=== PATIENT | male | born 1965 | race Caucasian/White ===

== ENCOUNTER 2018-10-08 12:16 | Observation (INO) | payer OTHER ==
[2018-10-08] MEDS ORDERED: BABY ASPIRIN 81 MG CHEW PO ONE (12:31)
[2018-10-08] MEDS ORDERED: MORPHINE SULFATE 2 MG INJ IV ONE (12:31)
--- NOTE | 2018-10-08 12:34 | ERPHSYRPT ---
- History of Present Illness Time Seen by Provider: 10/08/18 12:33 Historian: patient Physician History: mild to mod tight anterior chest pain today, nonrad, hx pacer and atrial fib, no [place] Aspirin Treatment Today: provided by ED Allergies/Adverse Reactions: tramadol Allergy (Verified 10/08/18 12:34) Home Medications: Metoprolol Succinate 25 mg Xl* [Toprol-Xl 25MG Tablets] 25 mg BID 10/08/18 [ History] - Review of Systems Constitutional: No Fever Eyes: No Eye Redness Ears, Nose, & Throat: No Mouth Pain Respiratory: No Dyspnea Cardiac: Chest Pain Abdominal/Gastrointestinal: No Abdominal Pain Musculoskeletal: No Back Pain Skin: No Rash Neurological: No Dizziness - Nursing Vital Signs Nursing Vital Signs: Initial Vital Signs Temperature 97.0 F 10/08/18 12:25 Pulse Rate 86 10/08/18 12:25 Respiratory Rate 18 10/08/18 12:25 Blood Pressure 150/112 10/08/18 12:25 O2 Sat by Pulse Oximetry 95 10/08/18 12:25 Pain Scale Pain Intensity 7 - Physical Exam General Appearance: no apparent distress Eye Exam: eyes nml inspection Ears, Nose, Throat Exam: moist mucous membranes Neck Exam: normal inspection Respiratory Exam: normal breath sounds Cardiovascular Exam: regular rate/rhythm Gastrointestinal/Abdomen Exam: soft, No tenderness Extremity Exam: normal range of motion Neurologic Exam: alert, oriented x 3, cooperative Skin Exam: normal color, warm, dry - Course Nursing assessment & vital signs reviewed: Yes EKG Interpreted by Me: Sinus Rhythm - Radiology Exams Chest X-ray Interpretation: Reviewed by me, Negative Ordered Tests: Active Orders 24 hr Category Date Time Status Owner Professional Engineer STAT Care 10/08/18 12:31 Active EKG-ER Only STAT Care 10/08/18 12:31 Active IV Insertion STAT Care 10/08/18 12:31 Active CHEST 1 VIEW (PORTABLE) Stat Exams 10/08/18 12:31 Completed CBC W DIFF Stat Lab 10/08/18 12:45 Completed CMP Stat Lab 10/08/18 12:45 Completed D-DIMER QUANTITATION Stat Lab 10/08/18 12:45 Completed PROTIME WITH INR Stat Lab 10/08/18 12:45 Completed TROPONIN Q3H Lab 10/08/18 12:45 Completed TROPONIN Q3H Lab 10/08/18 15:45 Ordered TROPONIN Q3H Lab 10/08/18 18:45 Ordered TROPONIN Q3H Lab 10/08/18 21:45 Ordered TROPONIN Q3H Lab 10/09/18 00:45 Ordered Urine Triage Profile Stat Lab 10/08/18 13:37 Ordered Medication Summary Discontinued Medications Generic Name Dose Route Start Last Admin Trade Name Millerq PRN Reason Stop Dose Admin Aspirin 324 mg 10/08/18 12:31 10/08/18 12:49 Baby Aspirin 81 Mg Chew PO 10/08/18 12:32 324 mg STAT ONE Administration Aspirin Confirm 10/08/18 12:35 Baby Aspirin 81 Mg Chew Administered 10/08/18 12:36 Dose 324 mg .ROUTE .STK-MED ONE Morphine Sulfate 2 mg 10/08/18 12:31 10/08/18 12:48 Morphine Sulfate 2 Mg Inj IV 10/08/18 12:32 2 mg STAT ONE Administration Morphine Sulfate Confirm 10/08/18 12:35 Morphine Sulfate 2 Mg Inj Administered 10/08/18 12:36 Dose 2 mg .ROUTE .STK-MED ONE Lab/Rad Data: Laboratory Result Diagrams 10/08/18 12:45 10/08/18 12:45 Laboratory Results 10/08/18 10/08/18 10/08/18 Range/Units 12:45 12:45 12:45 WBC (4.0-10.5) K/mm3 RBC (4.1-5.6) M/mm3 Hgb (12.5-18.0) gm/dl Hct (42-50) % MCV (78-100) fl MCH (26-32) pg MCHC (32-36) g/dl RDW (11.5-14.0) % Plt Count (150-450) K/mm3 MPV (6-9.5) fl Gran % (36.0-66.0) % Eos # (Auto) (0-0.5) Absolute Lymphs (auto) (1.0-4.6) Absolute Monos (auto) (0.0-1.3) Lymphocytes % (24.0-44.0) % Monocytes % (0.0-12.0) % Eosinophils % (0.00-5.0) % Basophils % (0.0-0.4) % Absolute Granulocytes (1.4-6.9) Basophils # (0-0.4) PT 11.1 (8.83-12.87) SECONDS INR 0.98 (0.8-3.0) D-Dimer < 215 L (215-500) ng/mL Sodium 141 (137-145) mmol/L Potassium 4.4 (3.5-5.1) mmol/L Chloride 104 (98-107) mmol/L Carbon Dioxide 27 (22-30) mmol/L Anion Gap 13.8 (5-15) MEQ/L BUN 16 (9-20) mg/dL Creatinine 0.74 (0.66-1.25) mg/dL Estimated GFR > 60.0 ML/MIN Glucose 107 H (74-106) mg/dL Calcium 9.6 (8.4-10.2) mg/dL Total Bilirubin 0.60 (0.2-1.3) mg/dL AST 27 (17-59) U/L ALT 32 (0-50) U/L Alkaline Phosphatase 44 (38-126) U/L Troponin I < 0.012 (0.000-0.034) ng/mL Serum Total Protein 7.7 (6.3-8.2) g/dL Albumin 4.7 (3.5-5.0) g/dL 10/08/18 Range/Units 12:45 WBC 4.9 (4.0-10.5) K/mm3 RBC 5.11 (4.1-5.6) M/mm3 Hgb 15.8 (12.5-18.0) gm/dl Hct 46.1 (42-50) % MCV 90.2 (78-100) fl MCH 30.9 (26-32) pg MCHC 34.3 (32-36) g/dl RDW 13.3 (11.5-14.0) % Plt Count 217 (150-450) K/mm3 MPV 9.8 H (6-9.5) fl Gran % 60.1 (36.0-66.0) % Eos # (Auto) 0.02 (0-0.5) Absolute Lymphs (auto) 1.32 (1.0-4.6) Absolute Monos (auto) 0.59 (0.0-1.3) Lymphocytes % 27.0 (24.0-44.0) % Monocytes % 12.1 H (0.0-12.0) % Eosinophils % 0.4 (0.00-5.0) % Basophils % 0.4 (0.0-0.4) % Absolute Granulocytes 2.94 (1.4-6.9) Basophils # 0.02 (0-0.4) PT (8.83-12.87) SECONDS INR (0.8-3.0) D-Dimer (215-500) ng/mL Sodium (137-145) mmol/L Potassium (3.5-5.1) mmol/L Chloride (98-107) mmol/L Carbon Dioxide (22-30) mmol/L Anion Gap (5-15) MEQ/L BUN (9-20) mg/dL Creatinine (0.66-1.25) mg/dL Estimated GFR ML/MIN Glucose (74-106) mg/dL Calcium (8.4-10.2) mg/dL Total Bilirubin (0.2-1.3) mg/dL AST (17-59) U/L ALT (0-50) U/L Alkaline Phosphatase (38-126) U/L Troponin I (0.000-0.034) ng/mL Serum Total Protein (6.3-8.2) g/dL Albumin (3.5-5.0) g/dL - Progress Progress: improved Air Movement: good Progress Note: 10/08/18 13:41 admit d/w Dr Estrada, ekg nsr 85, no stemi Discussed with .: Bety Will see patient in: hospital (observation) Counseled pt/family regarding: lab results, diagnosis, rad results - Departure Departure Disposition: Observation Clinical Impression: Chest pain Qualifiers: Chest pain type: precordial pain Qualified Code(s): R07.2 - Precordial pain Condition: Stable Critical Care Time: No
[2018-10-08] MEDS ORDERED: MORPHINE SULFATE 2 MG INJ ONE (12:35)
[2018-10-08] MEDS ORDERED: BABY ASPIRIN 81 MG CHEW ONE (12:35)
[2018-10-08 12:49] LABS: BASOPHIL % 0.4 % (0.0-0.4); Basophil (Absolute #) 0.02 (0-0.4); Eosinophil % 0.4 % (0.00-5.0); Eosinophil (Absolute #) 0.02 (0-0.5); Granulocyte Absolute (ANC) 2.94 (1.4-6.9); Granulocytes % 60.1 % (36.0-66.0); Hematocrit 46.1 % (42-50); Hemoglobin 15.8 gm/dl (12.5-18.0); Lymphocyte (Absolute #) 1.32 (1.0-4.6); Mean Cell Volume 90.2 fl (78-100); Mean Corpuscular Hemoglobin 30.9 pg (26-32); Mean Corpuscular Hgb Concent. 34.3 g/dl (32-36); Mean Platelet Volume 9.8 fl (6-9.5); Monocyte (Absolute #) 0.59 (0.0-1.3); Monocytes % 12.1 % (0.0-12.0); Platelet Count 217 K/mm3 (150-450); Red Blood Count 5.11 M/mm3 (4.1-5.6); Red Cell Distribution Width 13.3 % (11.5-14.0); White Blood Count 4.9 K/mm3 (4.0-10.5)
--- NOTE | 2018-10-08 12:54 | XRAY ---
Indication: Chest pain. Comparison: None Portable chest demonstrates normal heart and lungs with incidental left dual-lead pacemaker and a few tiny calcified granulomas. Bony thorax intact.
[2018-10-08 12:59] LABS: INR 0.98 (0.8-3.0); PROTIME 11.1 SECONDS (8.83-12.87)
[2018-10-08 13:02] LABS: ALBUMIN 4.7 g/dL (3.5-5.0); ALKALINE PHOSPHATASE 44 U/L (38-126); ANION GAP 13.8 MEQ/L (5-15); BLOOD UREA NITROGEN 16 mg/dL (9-20); CHLORIDE 104 mmol/L (98-107); Calcium 9.6 mg/dL (8.4-10.2); Carbon Dioxide 27 mmol/L (22-30); Creatinine 1 0.74 mg/dL (0.66-1.25); Glucose 107 mg/dL (74-106); Potassium 4.4 mmol/L (3.5-5.1); SGOT/AST 27 U/L (17-59); SGPT/ALT 32 U/L (0-50); SODIUM 141 mmol/L (137-145); Total Protein 7.7 g/dL (6.3-8.2)
[2018-10-08 13:12] LABS: D-DIMER QUANTITATION < 215 ng/mL (215-500)
[2018-10-08] MEDS ORDERED: Ativan 2 MG/1 ML VIAL IV ONE (14:26)
[2018-10-08 14:29] LABS: Amphetamine,Urine NEGATIVE (NEGATIVE); Barbiturate,Urine NEGATIVE (NEGATIVE); Benzodiazepine,Urine POSITIVE (NEGATIVE); Cocaine,Urine NEGATIVE (NEGATIVE); Methadone,Urine NEGATIVE (NEGATIVE); Opiate,Urine POSITIVE (NEGATIVE); PCP,Urine NEGATIVE (NEGATIVE); THC,Urine NEGATIVE (NEGATIVE)
[2018-10-08] MEDS ORDERED: Ativan 2 MG/1 ML VIAL ONE (14:29)
[2018-10-08] MEDS ORDERED: Nitrostat 0.4 MG Tablet SL PRN (16:08)
[2018-10-08] MEDS ORDERED: PROTONIX 40 MG IV IV SCH (16:15)
[2018-10-08] MEDS ORDERED: TRAZODONE HCL PO PRN (16:22)
[2018-10-08] MEDS ORDERED: DESYREL 50 MG PO PRN (16:34)
[2018-10-08] MEDS ORDERED: NON-FORMULARY ITEM PO PRN (16:45)
[2018-10-08] MEDS: MORPHINE SULFATE 4 MG INJ IV PRN ×2 (17:11→21:19)
[2018-10-08] MEDS: CHLORPROMAZINE HCL 100 MG PO SCH ×2 (17:15→17:30)
[2018-10-08] MEDS: Toprol-Xl 25MG Tablets PO SCH (21:18)
[2018-10-08] MEDS ORDERED: NON-FORMULARY ITEM (Prazosin Hcl [Prazosin Hcl] 0 MG) PO SCH (22:00)
[2018-10-08] MEDS ORDERED: REMERON 30 MG PO SCH (22:00)
[2018-10-09] MEDS: MORPHINE SULFATE 4 MG INJ IV PRN ×2 (01:42→05:44)
[2018-10-09 06:26] LABS: BASOPHIL % 0.5 % (0.0-0.4); Basophil (Absolute #) 0.03 (0-0.4); Eosinophil % 0.8 % (0.00-5.0); Eosinophil (Absolute #) 0.05 (0-0.5); Granulocyte Absolute (ANC) 3.75 (1.4-6.9); Granulocytes % 57.7 % (36.0-66.0); Hematocrit 42.6 % (42-50); Hemoglobin 14.4 gm/dl (12.5-18.0); Lymphocyte (Absolute #) 1.88 (1.0-4.6); Mean Cell Volume 91.6 fl (78-100); Mean Corpuscular Hgb Concent. 33.8 g/dl (32-36); Mean Platelet Volume 9.5 fl (6-9.5); Monocyte (Absolute #) 0.78 (0.0-1.3); Platelet Count 196 K/mm3 (150-450); Red Blood Count 4.65 M/mm3 (4.1-5.6); Red Cell Distribution Width 13.2 % (11.5-14.0); White Blood Count 6.5 K/mm3 (4.0-10.5)
[2018-10-09 06:41] LABS: ALBUMIN 4.2 g/dL (3.5-5.0); ALKALINE PHOSPHATASE 41 U/L (38-126); ANION GAP 13.7 MEQ/L (5-15); BLOOD UREA NITROGEN 17 mg/dL (9-20); CHLORIDE 103 mmol/L (98-107); Carbon Dioxide 29 mmol/L (22-30); Cholesterol 219 mg/dL (50-200); Creatinine 1 0.87 mg/dL (0.66-1.25); Glucose 95 mg/dL (74-106); HDL CHOLESTEROL 46 mg/dL (40-60); Potassium 3.9 mmol/L (3.5-5.1); Risk Ratio 4.7; SGOT/AST 29 U/L (17-59); SGPT/ALT 32 U/L (0-50); SODIUM 141 mmol/L (137-145); TRIGLYCERIDE 222 mg/dL (30-150)
[2018-10-09 06:58] LABS: LDL, DIRECT 137 mg/dL (30-100)
[2018-10-09] MEDS: CHLORPROMAZINE HCL 100 MG PO SCH (08:30)
--- NOTE | 2018-10-09 09:21 | HP ---
CHIEF COMPLAINT: Chest pain. HISTORY OF PRESENT ILLNESS: The patient is a 53 year-old white male with history of previous atrial fibrillation. He had a pacemaker implanted about two and a half years ago. The patient also has a significant psychiatric history with schizophrenia and depression. He reports he has been out of medicines for a few days. He states he moved recently and he has no vehicle to get anywhere. In fact, he has seizures and cannot drive. The patient is in a state of change between his caregivers. He does have an appointment to see [facility] on 10/13/2018 for follow up for his problems. When asked, the patient admits to actually having visual and auditory hallucinations on a daily basis. The patient complains the chest pain is substernal in location, hurts with inspiration and pressure to the chest radiating to his left arm and down the arm. The patient was seen in the emergency room and admitted to the hospital on telemetry. He has been receiving serial troponins which have all been negative but continues to complain of fairly severe chest pain. He reports the pain was somewhat better with morphine but it just did not last. MEDICATIONS: The patient currently lists the only home medication is metoprolol 25 mg a day. The patient reports he had previously taken Effexor but cannot remember his other medications but includes medication for his schizophrenia. ALLERGIES: TRAMADOL. PHYSICAL EXAMINATION: The patient's vital signs on admission showed temperature 97.0F, pulse 86, respiratory rate 18 and blood pressure 150/112. O2 saturation 95% on room air. HEENT: Normocephalic, atraumatic. Pupils equal round reactive to light. Extraocular movements intact. Oropharynx is pink and moist. NECK: Supple without lymphadenopathy, thyromegaly or JVD. CHEST: Clear to auscultation with good air movement bilaterally. Tender in substernal location to pressure on the sternum. HEART: Currently regular without significant murmurs, rubs or gallops heard. ABDOMEN: Soft. No palpable masses. EXTREMITIES: Without cyanosis, clubbing or edema. NEUROLOGIC: The patient is alert and oriented x3. No focal deficits. He is quite tremulous particularly in his left hand. LAB DATA AND TESTS: His laboratory studies have revealed troponins all less than 0.012. Metabolic panel sugar was 95, BUN 17, creatinine 0.87. Electrolytes were normal. Liver enzymes were normal. Lipid panel showed LDL of 137, HDL 46. His CBC is entirely normal. The patient had a D-dimer that was less than 215. Portable chest x-ray showed dual lead pacemaker. His EKG presently shows sinus rhythm. On the 12-lead it shows some loss of R-wave progression across the precordial leads concerning for previous myocardial infarction. ASSESSMENT: A patient with chest wall pain. We will try tramadol and Voltaren rub to his chest. We will check a sedimentation rate to see if there is any evidence of inflammation. He was ruled out for myocardial infarction. We will check an echocardiogram to determine his previous ejection fraction, how his heart is presently working. His D-dimer has been negative, given this CT scan of the chest will be done to rule out pulmonary embolism. The patient will have a [facility] consultation to help determine what psychiatric medicines he should be on for his schizophrenia. Once his chest pain is more relieved and has had determination by [facility], he may be discharged home to his son. He currently reports he lives with his son but his son is away working all the time.
[2018-10-09] MEDS ORDERED: TORAdol 30 mg Injection IV PRN (09:29)
[2018-10-09] MEDS ORDERED: Voltaren GEL TOP PRN (09:29)
[2018-10-09] MEDS ORDERED: MORPHINE SULFATE 4 MG INJ IV PRN (09:48)
[2018-10-09] MEDS: Toprol-Xl 25MG Tablets PO SCH (11:48)
[2018-10-09 14:03] VITALS: BP 125/78; PULSE 78; O2SAT 93
== END 2018-10-09 15:12 ==
LOC: ED 12:16 → MED SURG 14:58
PROVIDERS: ADMIT Family Medicine; ATTEND Family Medicine
DX: R07.89 Other chest pain (principal); F20.9 Schizophrenia, unspecified; R44.3 Hallucinations, unspecified
CPT/HCPCS: 36000; 36415; 71045; 80053; 80061; 80307; 83721; 84484; 85025; 85379; 85610; 85652; 90791; 93005; 93041; 93268; 93306; 96374; 96375; 99285; G0378; Q3014; J1885; J2060; J2270; A9270-GY

== ENCOUNTER 2018-12-19 13:16 | Observation (INO) | payer OTHER ==
[2018-12-19] MEDS ORDERED: Nitrostat 0.4 MG (ED) SL ONE (13:27)
[2018-12-19] MEDS ORDERED: BABY ASPIRIN 81 MG CHEW PO ONE (13:27)
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
[2018-12-19] MEDS ORDERED: Sodium Chloride 0.9% 1000 ML 1,000 ML ONE (13:38)
[2018-12-19] MEDS: Sodium Chloride 0.9% 1000 ML 1,000 ML IV SCH ×3 (13:41→19:37)
[2018-12-19 13:46] LABS: Hemoglobin 14.8 gm/dl (12.5-18.0); Mean Corpuscular Hemoglobin 30.6 pg (26-32); Mean Corpuscular Hgb Concent. 34.4 g/dl (32-36); Mean Platelet Volume 9.9 fl (6-9.5); Platelet Count 222 K/mm3 (150-450); Red Blood Count 4.83 M/mm3 (4.1-5.6); Red Cell Distribution Width 12.8 % (11.5-14.0); White Blood Count 5.3 K/mm3 (4.0-10.5)
[2018-12-19 13:52] LABS: INR 1.56 (0.8-3.0); PROTIME 17.8 SECONDS (8.83-12.87)
[2018-12-19 14:05] LABS: ALBUMIN 4.1 g/dL (3.5-5.0); ALKALINE PHOSPHATASE 30 U/L (38-126); ANION GAP 14.4 MEQ/L (5-15); BLOOD UREA NITROGEN 11 mg/dL (9-20); CHLORIDE 103 mmol/L (98-107); Calcium 9.5 mg/dL (8.4-10.2); Carbon Dioxide 28 mmol/L (22-30); Creatinine 1 0.97 mg/dL (0.66-1.25); Glucose 132 mg/dL (74-106); NT PRO BNP 805 pg/mL (0-900); Potassium 4.3 mmol/L (3.5-5.1); SGOT/AST 17 U/L (17-59); SGPT/ALT 14 U/L (0-50); SODIUM 141 mmol/L (137-145)
[2018-12-19 14:08] LABS: BAND 2 % (0.0-2.0); Lymphocytes 28 % (24-44); Monocyte 8 % (0.0-12.0); Neutrophils 62 % (36.-66.); Total Cells Counted 100
[2018-12-19 14:09] LABS: Platelet Estimate NORMAL (NORMAL)
[2018-12-19] MEDS ORDERED: MAALOX ES 30 ML UNIT DOSE PO PRN (14:40)
[2018-12-19] MEDS ORDERED: Senokot-S Tablet PO PRN (14:40)
[2018-12-19] MEDS ORDERED: Zofran 4 MG/2 ML VIAL IV PRN (14:40)
[2018-12-19] MEDS ORDERED: MILK OF MAGNESIA 30 ML PO PRN (14:40)
[2018-12-19] MEDS: TYLENOL 325 MG PO PRN (15:32)
[2018-12-19] MEDS ORDERED: MORPHINE SULFATE 2 MG INJ IV PRN (16:34)
[2018-12-19] MEDS ORDERED: Pepcid 20 MG VIAL IV ONE (16:39)
[2018-12-19] MEDS: Pepcid 20 MG VIAL IV SCH ×2 (16:46→22:16)
[2018-12-19] MEDS ORDERED: Sodium Chloride 0.9% 1000 ML 1,000 ML IV STA (18:40)
[2018-12-19] MEDS ORDERED: Desyrel 150 MG PO PRN (18:55)
[2018-12-19] MEDS: TORAdol 30 mg Injection IV PRN (19:33)
--- NOTE | 2018-12-19 19:51 | XRAY ---
Indication: Intermittent chest pain. Comparison: October 08, 2018. Portable chest again without focal infiltrate, consolidation, or large effusion. Heart is not enlarged again with left sided dual lead pacemaker. Bony thorax intact. Impression: Stable nonacute chest.
[2018-12-19] MEDS ORDERED: Desyrel 150 MG PO SCH (22:00)
[2018-12-19] MEDS ORDERED: REMERON 30 MG PO SCH (22:00)
[2018-12-19] MEDS ORDERED: Abilify 10 MG PO SCH (22:00)
[2018-12-19] MEDS ORDERED: EFFEXOR 37.5 MG PO SCH (22:00)
[2018-12-19] MEDS: Toprol-Xl 25MG Tablets PO SCH (22:06)
[2018-12-19] MEDS ORDERED: EFFEXOR 37.5 MG ONE (22:12)
[2018-12-20] MEDS: Sodium Chloride 0.9% 1000 ML 1,000 ML IV SCH (04:30)
[2018-12-20 05:01] LABS: Risk Ratio 3.8
[2018-12-20] MEDS: Toprol-Xl 25MG Tablets PO SCH (08:13)
[2018-12-20] MEDS: TYLENOL 325 MG PO PRN (08:14)
[2018-12-20] MEDS: Pepcid 20 MG VIAL IV SCH (08:14)
[2018-12-20] MEDS ORDERED: Sodium Chloride 0.9% 500 ML 500 ML IV ONE (09:24)
[2018-12-20] MEDS ORDERED: EFFEXOR 37.5 MG PO SCH (10:00)
[2018-12-20] MEDS ORDERED: VITAMIN B-1 100 MG PO SCH (10:00)
[2018-12-20] MEDS ORDERED: XARELTO 10 MG TABLET PO SCH (10:00)
[2018-12-20] MEDS: TORAdol 30 mg Injection IV PRN (10:28)
[2018-12-20 14:17] VITALS: O2SAT 95
[2018-12-20 16:31] VITALS: BP 141/92; PULSE 64
--- NOTE | 2018-12-20 19:11 | XRAY ---
Indication: Chest pain. Multiple contiguous axial images obtained through the chest without contrast. Known IV contrast allergy. Comparison: None Lungs demonstrates mild bilateral dependent atelectasis and minimal bibasilar fibrosis/scarring. No suspicious pulmonary mass, infiltrate, or effusion. Heart is not enlarged with left-sided pacemaker. Aorta is normal in course and caliber. No pathologic mediastinal lymphadenopathy. Bony thorax intact. Limited upper abdomen including adrenal glands are unremarkable. Impression: 1. Bilateral atelectasis and fibrosis/scarring. 2. Remaining CT chest without contrast exam is negative. Comment: Preliminary interpretation was made by [facility]. No discrepancy. CTDI 15.63
[2018-12-20] MEDS ORDERED: Depakote EXTENDED RELEASE 250 MG PO SCH (22:00)
[2018-12-20] MEDS ORDERED: PRAZOSIN HCL 2 MG PO SCH (22:00)
[2018-12-20] MEDS ORDERED: NON-FORMULARY ITEM (Prazosin Hcl [Prazosin Hcl] 0 MG) PO SCH (22:00)
[2018-12-21] MEDS ORDERED: FLUZONE HIGH-DOSE 2019-20 SYR IM ONE (10:00)
== END 2018-12-20 17:10 | disposition home or self-care (01) ==
LOC: ED 13:16 → MED SURG 15:01
PROVIDERS: ADMIT Family Medicine; ATTEND Family Medicine
DX: R07.9 Chest pain, unspecified (principal); I10 Essential (primary) hypertension; E03.9 Hypothyroidism, unspecified; Z79.899 Other long term (current) drug therapy; Z86.79 Personal history of other diseases of the circulatory system; Z95.0 Presence of cardiac pacemaker; Z86.69 Personal history of other diseases of the nervous system and sense organs
CPT/HCPCS: 36415; 71250; 80053; 80061; 83721; 83880; 84484; 85025; 85379; 85610; 93005; 93041; 93268; 94760; 96360; 99291; G0378; 36000; 71045; 99285; J1885; J2270; A9270-GY

== ENCOUNTER 2019-02-13 10:41 | Observation (INO) | payer OTHER ==
[2019-02-13] MEDS ORDERED: LOPRESSOR 5 MG/5 ML INJECTION IV ONE ×2 (10:56→11:17)
[2019-02-13] MEDS ORDERED: MORPHINE SULFATE 4 MG INJ IV ONE (10:56)
[2019-02-13] MEDS ORDERED: Sodium Chloride 0.9% 1000 ML 1,000 ML IV SCH (11:00)
[2019-02-13] MEDS ORDERED: Cardizem IV 50 MG/10 ML IV ONE ×2 (11:08→11:18)
[2019-02-13] MEDS ORDERED: Zofran 4 MG/2 ML VIAL IV ONE (11:15)
[2019-02-13] MEDS ORDERED: Zofran 4 MG/2 ML VIAL ONE (11:17)
[2019-02-13] MEDS ORDERED: Sodium Chloride 0.9% 1000 ML 1,000 ML ONE (11:18)
[2019-02-13] MEDS ORDERED: MORPHINE SULFATE 4 MG INJ ONE (11:18)
[2019-02-13 11:24] LABS: Absolute Neutrophil Ct (ANC) 2.81 (1.4-6.9); BASOPHIL % 0.4 % (0.0-0.4); Basophil (Absolute #) 0.02 (0-0.4); Eosinophil % 0.7 % (0.00-5.0); Eosinophil (Absolute #) 0.04 (0-0.5); Hematocrit 38.7 % (42-50); Hemoglobin 13.1 gm/dl (12.5-18.0); Lymphocyte (Absolute #) 1.92 (1.0-4.6); Mean Cell Volume 91.1 fl (78-100); Mean Corpuscular Hemoglobin 30.8 pg (26-32); Mean Corpuscular Hgb Concent. 33.9 g/dl (32-36); Mean Platelet Volume 9.8 fl (7.5-11.0); Monocytes % 12.8 % (0.0-12.0); Neutrophil % 51.1 % (36.0-66.0); Platelet Count 203 K/mm3 (150-450); Red Blood Count 4.25 M/mm3 (4.1-5.6); Red Cell Distribution Width 13.1 % (11.5-14.0); White Blood Count 5.5 K/mm3 (4.0-10.5)
[2019-02-13] MEDS ORDERED: BABY ASPIRIN 81 MG CHEW PO ONE (11:34)
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
[2019-02-13] MEDS ORDERED: BABY ASPIRIN 81 MG CHEW ONE (11:35)
[2019-02-13 11:44] LABS: ALBUMIN 3.4 g/dL (3.5-5.0); ALKALINE PHOSPHATASE 39 U/L (38-126); ANION GAP 7.8 MEQ/L (5-15); BLOOD UREA NITROGEN 9 mg/dL (9-20); CHLORIDE 108 mmol/L (98-107); Calcium 8.2 mg/dL (8.4-10.2); Carbon Dioxide 28 mmol/L (22-30); Creatinine 1 0.91 mg/dL (0.66-1.25); Glucose 138 mg/dL (74-106); NT PRO BNP 1510 pg/mL (0-900); Potassium 3.7 mmol/L (3.5-5.1); SGOT/AST 29 U/L (17-59); SGPT/ALT 38 U/L (0-50); SODIUM 140 mmol/L (137-145); Total Protein 6.2 g/dL (6.3-8.2)
[2019-02-13] MEDS ORDERED: MORPHINE SULFATE 2 MG INJ IV ONE (11:55)
[2019-02-13] MEDS ORDERED: MORPHINE SULFATE 2 MG INJ ONE (11:58)
[2019-02-13] MEDS ORDERED: MAALOX ES 30 ML UNIT DOSE PO PRN (12:52)
[2019-02-13] MEDS ORDERED: Zofran 4 MG/2 ML VIAL IV PRN (12:52)
[2019-02-13] MEDS ORDERED: Sodium Chloride 0.9% 500 ML 500 ML IV SCH (12:52)
[2019-02-13] MEDS ORDERED: TYLENOL 325 MG PO PRN (12:52)
[2019-02-13] MEDS ORDERED: Senokot-S Tablet PO PRN (12:52)
[2019-02-13] MEDS ORDERED: MILK OF MAGNESIA 30 ML PO PRN (12:52)
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
[2019-02-13] MEDS: CARDIZEM DRIP 100 MG/100 ML D5W 100 ML IV PRN ×2 (15:05→23:43)
[2019-02-13] MEDS: MORPHINE SULFATE 2 MG INJ IV PRN ×3 (16:40→23:49)
--- NOTE | 2019-02-13 19:58 | XRAY ---
Indication: Chest pain. Comparison: December 19, 2018. Portable chest underinflated accentuating cardiopulmonary structures with stable left dual-lead pacemaker. Lungs remain clear. Bony thorax intact. No new/acute findings.
[2019-02-13] MEDS: Nitrostat 0.4 MG Tablet SL PRN ×2 (20:55→21:00)
[2019-02-13] MEDS: Pepcid 20 MG VIAL IV SCH (21:38)
[2019-02-13] MEDS: COGENTIN 0.5 MG PO SCH (21:38)
[2019-02-13] MEDS: ZOCOR 20MG PO SCH (21:38)
[2019-02-13] MEDS: BUSPAR 5 MG PO SCH ×2 (21:38→21:47)
[2019-02-13] MEDS: REMERON 30 MG PO SCH (21:39)
[2019-02-13] MEDS: Abilify 10 MG PO SCH (21:39)
[2019-02-13] MEDS: Desyrel 150 MG PO SCH (21:39)
[2019-02-13] MEDS: Lopressor 25MG Tab PO SCH (22:37)
[2019-02-13] MEDS: Toprol-Xl 25MG Tablets PO SCH (22:37)
[2019-02-14] MEDS: MORPHINE SULFATE 2 MG INJ IV PRN ×4 (05:36→19:59)
--- NOTE | 2019-02-14 06:18 | PCM.NOTE ---
Date and Time: 02/14/19617 Subjective Assessment: doing better - Review of Systems Constitutional: No Fever, No Chills Eyes: No Symptoms Ears, Nose, & Throat: No Symptoms Respiratory: No Cough, No Short Of Breath Cardiac: Chest Pain, No Edema, No Syncope Abdominal/Gastrointestinal: No Abdominal Pain, No Nausea, No Vomiting, No Diarrhea Genitourinary Symptoms: No Dysuria Musculoskeletal: No Back Pain, No Neck Pain Skin: No Rash Neurological: No Dizziness, No Focal Weakness, No Sensory Changes Psychological: No Symptoms Endocrine: No Symptoms Hematologic/Lymphatic: No Symptoms Immunological/Allergic: No Symptoms Objective Exam General Appearance: no apparent distress, alert Neurologic Exam: alert, oriented x 3, cooperative, normal mood/affect, nml cerebellar function, sensation nml, No motor deficits Skin Exam: normal color, warm, dry Eye Exam: PERRL, EOMI, eyes nml inspection Ears, Nose, Throat Exam: normal ENT inspection, pharynx normal, moist mucous membranes Neck Exam: normal inspection, non-tender, supple, full range of motion Respiratory Exam: normal breath sounds, lungs clear, No respiratory distress Cardiovascular Exam: regular rate/rhythm, normal heart sounds Gastrointestinal/Abdomen Exam: soft, No tenderness, No mass Extremity Exam: normal inspection, normal range of motion Back Exam: normal inspection, normal range of motion, No CVA tenderness, No vertebral tenderness Male Genitalia Exam: deferred Rectal Exam: deferred OBJECTIVE DATA Vital Signs: Vital Signs - 24 hr Temp Pulse Pulse Resp BP BP Pulse Ox 02/14/19 06:00 98.1 F 96 H 111/77 02/14/19 05:00 74 107/76 02/14/19 04:35 71 18 97/60 96 02/14/19 04:30 71 18 97/60 02/14/19 04:00 98.8 F 71 20 116/80 116/80 96 02/14/19 03:00 86 106/73 94 L 02/14/19 02:00 103 H 18 117/76 94 L 02/14/19 01:00 97.7 F 93 H 19 101/74 94 L 02/14/19 00:23 91 H 02/14/19 00:00 97.7 F 91 H 20 118/72 95 02/13/19 23:43 104 H 19 108/76 02/13/19 23:10 95 02/13/19 23:00 104 H 19 108/76 95 02/13/19 22:00 99 H 19 116/68 94 L 02/13/19 21:00 96 H 102/62 102/62 02/13/19 20:55 93 H 120/65 02/13/19 20:00 94 H 23 110/87 96 02/13/19 19:00 97.4 F 119 H 17 121/65 97 02/13/19 18:00 113 H 22 113/82 93 L 02/13/19 17:00 97.8 F 117 H 22 123/93 94 L 02/13/19 16:00 98.1 F 111 H 22 127/85 94 L 02/13/19 15:05 129 H 19 123/89 02/13/19 13:47 98.4 F 80 20 133/86 94 L 02/13/19 12:05 97 02/13/19 11:38 104 H 18 118/87 97 02/13/19 11:31 108 H 20 104/80 96 02/13/19 10:47 98.6 F 100 H 100 H 20 132/109 97 Oxygen-Last 24 hours O2 Percentage 2 Liters = 28% O2 Percentage 2 Liters = 28% O2 Percentage 2 Liters = 28% O2 Percentage 2 Liters = 28% O2 Percentage 2 Liters = 28% O2 Percentage 2 Liters = 28% O2 Percentage 2 Liters = 28% O2 Percentage 2 Liters = 28% O2 Percentage 2 Liters = 28% O2 Percentage 2 Liters = 28% O2 Percentage 2 Liters = 28% Pain Assessment - Last Documented Pain Intensity 9 Pain Scale Used 0-10 Pain Scale Intake and Output: Intake & Output 02/11/19 02/12/19 02/13/19 02/14/19 11:59 11:59 11:59 11:59 Intake Total 1218 Output Total 1700 Balance -482 Weight 120.202 kg 120.1 kg Lab Results: Lab Results-Last 24 Hours 02/13/19 02/13/19 02/13/19 Range/Units 00:02 11:15 11:15 WBC 5.5 (4.0-10.5) K/mm3 RBC 4.25 (4.1-5.6) M/mm3 Hgb 13.1 (12.5-18.0) gm/dl Hct 38.7 L (42-50) % MCV 91.1 (78-100) fl MCH 30.8 (26-32) pg MCHC 33.9 (32-36) g/dl RDW 13.1 (11.5-14.0) % Plt Count 203 (150-450) K/mm3 MPV 9.8 H (7.5-11.0) fl Gran % 51.1 (36.0-66.0) % Eos # (Auto) 0.04 (0-0.5) Absolute Lymphs (auto) 1.92 (1.0-4.6) Absolute Monos (auto) 0.70 (0.0-1.3) Lymphocytes % 35.0 (24.0-44.0) % Monocytes % 12.8 H (0.0-12.0) % Eosinophils % 0.7 (0.00-5.0) % Basophils % 0.4 (0.0-0.4) % Absolute Granulocytes 2.81 (1.4-6.9) Basophils # 0.02 (0-0.4) D-Dimer (215-500) ng/mL Sodium 140 (137-145) mmol/L Potassium 3.7 (3.5-5.1) mmol/L Chloride 108 H (98-107) mmol/L Carbon Dioxide 28 (22-30) mmol/L Anion Gap 7.8 (5-15) MEQ/L BUN 9 (9-20) mg/dL Creatinine 0.91 (0.66-1.25) mg/dL Estimated GFR > 60.0 ML/MIN Glucose 138 H (74-106) mg/dL Calcium 8.2 L (8.4-10.2) mg/dL Total Bilirubin 0.50 (0.2-1.3) mg/dL AST 29 (17-59) U/L ALT 38 (0-50) U/L Alkaline Phosphatase 39 (38-126) U/L Troponin I < 0.012 (0.000-0.034) ng/mL NT-Pro-B Natriuret Pep 1510 H (0-900) pg/mL Serum Total Protein 6.2 L (6.3-8.2) g/dL Albumin 3.4 L (3.5-5.0) g/dL 02/13/19 02/13/19 02/13/19 Range/Units 11:15 11:15 14:00 WBC (4.0-10.5) K/mm3 RBC (4.1-5.6) M/mm3 Hgb (12.5-18.0) gm/dl Hct (42-50) % MCV (78-100) fl MCH (26-32) pg MCHC (32-36) g/dl RDW (11.5-14.0) % Plt Count (150-450) K/mm3 MPV (7.5-11.0) fl Gran % (36.0-66.0) % Eos # (Auto) (0-0.5) Absolute Lymphs (auto) (1.0-4.6) Absolute Monos (auto) (0.0-1.3) Lymphocytes % (24.0-44.0) % Monocytes % (0.0-12.0) % Eosinophils % (0.00-5.0) % Basophils % (0.0-0.4) % Absolute Granulocytes (1.4-6.9) Basophils # (0-0.4) D-Dimer 360 (215-500) ng/mL Sodium (137-145) mmol/L Potassium (3.5-5.1) mmol/L Chloride (98-107) mmol/L Carbon Dioxide (22-30) mmol/L Anion Gap (5-15) MEQ/L BUN (9-20) mg/dL Creatinine (0.66-1.25) mg/dL Estimated GFR ML/MIN Glucose (74-106) mg/dL Calcium (8.4-10.2) mg/dL Total Bilirubin (0.2-1.3) mg/dL AST (17-59) U/L ALT (0-50) U/L Alkaline Phosphatase (38-126) U/L Troponin I < 0.012 < 0.012 (0.000-0.034) ng/mL NT-Pro-B Natriuret Pep (0-900) pg/mL Serum Total Protein (6.3-8.2) g/dL Albumin (3.5-5.0) g/dL 02/13/19 02/13/19 Range/Units 18:06 20:51 WBC (4.0-10.5) K/mm3 RBC (4.1-5.6) M/mm3 Hgb (12.5-18.0) gm/dl Hct (42-50) % MCV (78-100) fl MCH (26-32) pg MCHC (32-36) g/dl RDW (11.5-14.0) % Plt Count (150-450) K/mm3 MPV (7.5-11.0) fl Gran % (36.0-66.0) % Eos # (Auto) (0-0.5) Absolute Lymphs (auto) (1.0-4.6) Absolute Monos (auto) (0.0-1.3) Lymphocytes % (24.0-44.0) % Monocytes % (0.0-12.0) % Eosinophils % (0.00-5.0) % Basophils % (0.0-0.4) % Absolute Granulocytes (1.4-6.9) Basophils # (0-0.4) D-Dimer (215-500) ng/mL Sodium (137-145) mmol/L Potassium (3.5-5.1) mmol/L Chloride (98-107) mmol/L Carbon Dioxide (22-30) mmol/L Anion Gap (5-15) MEQ/L BUN (9-20) mg/dL Creatinine (0.66-1.25) mg/dL Estimated GFR ML/MIN Glucose (74-106) mg/dL Calcium (8.4-10.2) mg/dL Total Bilirubin (0.2-1.3) mg/dL AST (17-59) U/L ALT (0-50) U/L Alkaline Phosphatase (38-126) U/L Troponin I < 0.012 < 0.012 (0.000-0.034) ng/mL NT-Pro-B Natriuret Pep (0-900) pg/mL Serum Total Protein (6.3-8.2) g/dL Albumin (3.5-5.0) g/dL Radiology Exams: Radiology Procedures Category Date Time Status CHEST 1 VIEW (PORTABLE) Stat Exams 02/13/19 10:58 Completed ECHO W/2D AND DOPPLER [US] Routine Exams 02/15/19 08:00 Ordered Assessment/Plan (1) Chest pain Current Visit: Yes Status: Acute Qualifiers: Chest pain type: precordial pain Qualified Code(s): R07.2 - Precordial pain Assessment & Plan: Last Vital Signs Temp 98.1 F 02/14/19 06:00 Pulse 96 H 02/14/19 06:00 Resp 18 02/14/19 04:35 BP 111/77 02/14/19 06:00 Pulse Ox 96 02/14/19 04:35 Allergies shellfish derived Allergy (Verified 02/13/19 10:45) Swelling of Face tramadol Allergy (Verified 02/13/19 10:45) Active Medications Acetaminophen (Tylenol 325 Mg) 650 mg PO Q4H PRN PRN PRN Reason: PAIN AND/OR FEVER Stop: 03/15/19 12:51 Al Hydrox/Mg Hydrox/Simethicone (Maalox Es 30 Ml Unit Dose) 30 ml PO Q4H PRN PRN PRN Reason: INDIGESTION Stop: 03/15/19 12:51 Aripiprazole (Abilify 10 Mg) 30 mg PO [facility] Stop: 03/15/19 21:59 Last Admin: 02/13/19 21:39 Dose: 30 mg Benztropine Mesylate (Cogentin 0.5 Mg) 1 mg PO BID [facility] Stop: 03/15/19 21:59 Last Admin: 02/13/19 21:38 Dose: 1 mg Buspirone HCl (Buspar 5 Mg) 10 mg PO BID [facility] Stop: 03/15/19 19:59 Last Admin: 02/13/19 21:47 Dose: Not Given Divalproex Sodium (Divalproex Dr 250 Mg Tab) 1,500 mg PO [facility] Stop: 03/15/19 21:59 Last Admin: 02/13/19 21:38 Dose: 1,500 mg Famotidine (Pepcid 20 Mg Vial) 20 mg IV Q12HT [facility] Stop: 03/15/19 21:59 Last Admin: 02/13/19 21:38 Dose: 20 mg Sodium Chloride (Sodium Chloride 0.9% 500 Ml) 500 mls @ 20 mls/hr IV .Q24H [facility] Stop: 03/15/19 12:51 Diltiazem HCl (Cardizem Drip 100 Mg/100 Ml D5w) 100 mls @ 5 mls/hr IV .Q20H PRN ; Protocol PRN Reason: HEART RATE/ A-FIB Stop: 03/15/19 14:16 Last Titration: 02/14/19 04:30 Dose: 0 mg/hr, 0 mls/hr Magnesium Hydroxide (Milk Of Magnesia 30 Ml) 30 - 60 ml PO QDP PRN PRN Reason: CONSTIPATION Stop: 03/15/19 12:51 Metoprolol Succinate (Toprol-Xl 25mg Tablets) 25 mg PO BID [facility] Stop: 03/15/19 21:59 Last Admin: 02/13/19 22:37 Dose: Not Given Metoprolol Tartrate (Lopressor 25mg Tab) 25 mg PO BID [facility] Stop: 03/15/19 21:59 Last Admin: 02/13/19 22:37 Dose: Not Given Mirtazapine (Remeron 30 Mg) 30 mg PO [facility] Stop: 03/15/19 21:59 Last Admin: 02/13/19 21:39 Dose: 30 mg Morphine Sulfate (Morphine Sulfate 2 Mg Inj) 2 mg IV Q4H PRN PRN PRN Reason: PAIN Stop: 02/18/19 12:51 Last Admin: 02/14/19 05:36 Dose: 2 mg Nitroglycerin (Nitrostat 0.4 Mg Tablet) 0.4 mg SL Q5MIN PRN MR X 3 PRN PRN Reason: CHEST PAIN Stop: 03/15/19 20:51 Last Admin: 02/13/19 21:00 Dose: 0.4 mg Ondansetron HCl (Zofran 4 Mg/2 Ml Vial) 4 mg IV Q4H PRN PRN PRN Reason: NAUSEA/VOMITING Stop: 03/15/19 12:51 Senna/Docusate Sodium (Senokot-S Tablet) 2 udtab PO BID PRN PRN PRN Reason: CONSTIPATION Stop: 03/15/19 12:51 Simvastatin (Zocor 20mg) 20 mg PO [facility] Stop: 03/15/19 21:59 Last Admin: 02/13/19 21:38 Dose: 20 mg Trazodone HCl (Desyrel 150 Mg) 150 mg PO [facility] Stop: 03/15/19 21:59 Last Admin: 02/13/19 21:39 Dose: 150 mg Intake & Output 02/13/19 02/14/19 11:59 11:59 Intake Total 1218 Output Total 1700 Balance -482 Weight 120.202 kg 120.1 kg Orders 02/13/19 12:52 Bedrest with BRP/BSC ROUTINE Code Status Order ROUTINE IV Care Q1H Implement Chest Pain Pathway ROUTINE Place in Observation ROUTINE [place] [facility] ROUTINE Weight,Daily 0600 Acetaminophen 325 mg [Tylenol 325 mg] 650 mg PO Q4H PRN PRN Mag Hydrox/Al Hydrox/Simeth [Maalox Es 30 ml Unit Dose] 30 ml PO Q4H PRN PRN Magnesium Hydroxide 30 ml [Milk of Magnesia 30 ml] 30 - 60 ml PO QDP PRN Morphine Sulfate 2 mg Inj 2 mg IV Q4H PRN PRN NaCl 0.9% 500 ml [Sodium Chloride 0.9% 500 ML] 500 ml IV 20 mls/hr Ondansetron HCl 4 mg/2 ml [Zofran 4 MG/2 ML VIAL] 4 mg IV Q4H PRN PRN Senna/Docusate Sodium Tab [Senokot-S Tablet] 2 udtab PO BID PRN PRN Pulse Oximetry Q4H 02/13/19 13:36 Telemetry q4h 02/13/19 14:07 Wafer Fab Operator/Discharge Plan Nutritional Admission Screen 02/13/19 14:17 Diltiazem HCl 100 mg/100 ml [Cardizem Drip 100 mg/100 ml D5w] 100 ml IV 5 mg/hr 02/13/19 20:00 Buspirone HCl 5 mg [Buspar 5 mg] 10 mg PO BID 02/13/19 20:52 Nitroglycerin 0.4 mg Tablet [Nitrostat 0.4 MG Tablet] 0.4 mg SL Q5MIN PRN MR X 3 PRN 02/13/19 22:00 Aripiprazole 10 mg [Abilify 10 MG] 30 mg PO HS Benztropine Mesylate 0.5 mg [Cogentin 0.5 mg] 1 mg PO BID Divalproex Sodium 250 mg [Divalproex DR 250 mg Tab] 1,500 mg PO HS Famotidine 20 mg Vial [Pepcid 20 MG VIAL] 20 mg IV Q12HT Metoprolol Succinate 25 mg Xl* [Toprol-Xl 25MG Tablets] 25 mg PO BID Metoprolol Tartrate 25 mg [Lopressor 25MG Tab] 25 mg PO BID Mirtazapine 30 mg [Remeron 30 mg] 30 mg PO HS Simvastatin 20Mg [Zocor 20Mg] 20 mg PO HS Trazodone HCl 150 mg [Desyrel 150 MG] 150 mg PO HS 02/13/19 23:09 Oxygen Nasal Cannula 2 lpm 02/13/19 Dinner Cardiac Diet 02/14/19 04:00 LIPID PROFILE AM.LAB 02/14/19 10:00 Flu Vacc [id number](6Mos Up)/Pf [Fluzone Quad Syringe] 60 mcg IM .ONCE ONE 02/15/19 05:00 EKG ONCE 02/15/19 08:00 ECHO W/2D AND DOPPLER [US] Routine 02/16/19 05:00 EKG ONCE EKG ONCE Lab Tests 02/13/19 02/13/19 02/13/19 00:02 11:15 11:15 WBC 5.5 RBC 4.25 Hgb 13.1 Hct 38.7 L MCV 91.1 MCH 30.8 MCHC 33.9 RDW 13.1 Plt Count 203 MPV 9.8 H Gran % 51.1 Eos # (Auto) 0.04 Absolute Lymphs (auto) 1.92 Absolute Monos (auto) 0.70 Lymphocytes % 35.0 Monocytes % 12.8 H Eosinophils % 0.7 Basophils % 0.4 Absolute Granulocytes 2.81 Basophils # 0.02 D-Dimer Sodium 140 Potassium 3.7 Chloride 108 H Carbon Dioxide 28 Anion Gap 7.8 BUN 9 Creatinine 0.91 Estimated GFR > 60.0 Glucose 138 H Calcium 8.2 L Total Bilirubin 0.50 AST 29 ALT 38 Alkaline Phosphatase 39 Troponin I < 0.012 NT-Pro-B Natriuret Pep 1510 H Serum Total Protein 6.2 L Albumin 3.4 L 01/04/20 01/04/20 01/04/20 11:15 11:15 14:00 WBC RBC Hgb Hct MCV MCH MCHC RDW Plt Count MPV Gran % Eos # (Auto) Absolute Lymphs (auto) Absolute Monos (auto) Lymphocytes % Monocytes % Eosinophils % Basophils % Absolute Granulocytes Basophils # D-Dimer 360 Sodium Potassium Chloride Carbon Dioxide Anion Gap BUN Creatinine Estimated GFR Glucose Calcium Total Bilirubin AST ALT Alkaline Phosphatase Troponin I < 0.012 < 0.012 NT-Pro-B Natriuret Pep Serum Total Protein Albumin 02/13/19 02/13/19 18:06 20:51 WBC RBC Hgb Hct MCV MCH MCHC RDW Plt Count MPV Gran % Eos # (Auto) Absolute Lymphs (auto) Absolute Monos (auto) Lymphocytes % Monocytes % Eosinophils % Basophils % Absolute Granulocytes Basophils # D-Dimer Sodium Potassium Chloride Carbon Dioxide Anion Gap BUN Creatinine Estimated GFR Glucose Calcium Total Bilirubin AST ALT Alkaline Phosphatase Troponin I < 0.012 < 0.012 NT-Pro-B Natriuret Pep Serum Total Protein Albumin Code(s): R07.9 - CHEST PAIN, UNSPECIFIED (2) Atrial fibrillation and flutter Current Visit: Yes Status: Acute Code(s): I48.91 - UNSPECIFIED ATRIAL FIBRILLATION; I48.92 - UNSPECIFIED ATRIAL FLUTTER
[2019-02-14] MEDS ORDERED: FLUZONE QUAD 2019-2020 SYRINGE IM ONE (10:00)
[2019-02-14] MEDS: XARELTO 10 MG TABLET PO SCH (10:15)
[2019-02-14] MEDS: BUSPAR 5 MG PO SCH ×2 (10:15→22:10)
[2019-02-14] MEDS: Effexor XR 75 MG PO SCH (10:16)
[2019-02-14] MEDS: SYNTHROID 50 MCG PO SCH (10:16)
[2019-02-14] MEDS: FOLATE 1 MG PO SCH (10:16)
[2019-02-14] MEDS: VITAMIN B-1 100 MG PO SCH (10:16)
[2019-02-14] MEDS: Pepcid 20 MG VIAL IV SCH ×2 (10:19→22:09)
[2019-02-14] MEDS: COGENTIN 0.5 MG PO SCH ×2 (10:19→22:19)
[2019-02-14] MEDS: Lopressor 25MG Tab PO SCH ×2 (10:56→22:11)
[2019-02-14] MEDS: Toprol-Xl 25MG Tablets PO SCH (10:56)
[2019-02-14] MEDS ORDERED: PRAZOSIN PO SCH (22:00)
[2019-02-14] MEDS: Abilify 10 MG PO SCH (22:09)
[2019-02-14] MEDS: Desyrel 150 MG PO SCH (22:10)
[2019-02-14] MEDS: REMERON 30 MG PO SCH (22:10)
[2019-02-14] MEDS: ZOCOR 20MG PO SCH (22:11)
[2019-02-15] MEDS: MORPHINE SULFATE 2 MG INJ IV PRN ×3 (03:53→11:56)
[2019-02-15] MEDS: Lopressor 25MG Tab PO SCH (07:49)
[2019-02-15] MEDS: FOLATE 1 MG PO SCH (07:49)
[2019-02-15] MEDS: BUSPAR 5 MG PO SCH (07:50)
[2019-02-15] MEDS: XARELTO 10 MG TABLET PO SCH (07:52)
[2019-02-15] MEDS: Pepcid 20 MG VIAL IV SCH (07:52)
[2019-02-15] MEDS: VITAMIN B-1 100 MG PO SCH (07:52)
[2019-02-15] MEDS: Effexor XR 75 MG PO SCH (07:52)
[2019-02-15] MEDS: SYNTHROID 50 MCG PO SCH (07:52)
[2019-02-15] MEDS: COGENTIN 0.5 MG PO SCH (08:14)
--- NOTE | 2019-02-15 12:19 | PCM.DS ---
Discharge Summary Date of Admission: 02/13/19 12:43 Admitting Physician: HEAVEN GILLIAM Primary Care Provider: MIRIAM SILVA MD Allergies Allergies shellfish derived Allergy (Verified 02/13/19 10:45) Swelling of Face tramadol Allergy (Verified 02/13/19 10:45) Hospital Summary - Hospital Course Hospital Course: Chief Complaint Diagnosis chest pain for 1 week Allergies Allergy/AdvReac Type Severity Reaction Status Date / Time shellfish derived Allergy Swelling Verified 02/13/19 10:45 of Face tramadol Allergy Verified 02/13/19 10:45 Vital Signs (Last 24 hours) Temp Pulse Resp BP Pulse Ox 02/15/19 11:13 91 L 02/15/19 09:00 97.6 F 105 H 24 135/85 94 L 02/15/19 08:22 94 L 02/15/19 06:00 94 L 02/15/19 04:12 97.7 F 88 18 137/87 94 L 02/15/19 02:00 97 02/14/19 23:29 98.5 F 89 22 128/90 97 02/14/19 22:03 97 02/14/19 21:00 97.8 F 91 H 20 115/80 97 02/14/19 19:00 95 02/14/19 16:58 98.0 F 90 18 130/85 96 02/14/19 15:00 96 Home Medications Medication Instructions Recorded Confirmed Last Taken Type Benztropine Mesylate 1 mg PO BID 02/13/19 02/13/19 02/12/19 History Buspirone HCl 5 mg [Buspar 5 10 mg PO BID 02/13/19 02/13/19 02/12/19 History mg] Folic Acid 1 mg PO DAILY 02/13/19 02/13/19 02/12/19 History Levothyroxine Sodium [Synthroid] 50 mcg PO QAM 02/13/19 02/13/19 Unknown History Prazosin HCl [Minipress] 5 mg PO HS 02/13/19 02/13/19 02/12/19 History Rivaroxaban [Xarelto] 20 mg PO QAM 02/13/19 02/13/19 02/13/19 History Simvastatin 20 mg PO HS 02/13/19 02/13/19 Unknown History Trazodone HCl 150 mg [Desyrel 150 mg PO HS 02/13/19 02/13/19 02/12/19 History 150 MG] Venlafaxine HCl [Venlafaxine HCl 150 mg PO QAM 02/13/19 02/13/19 02/12/19 History ER] Current Medications Generic Name Dose Route Start Last Admin Trade Name Freq PRN Reason Stop Dose Admin Acetaminophen 650 mg 02/13/19 12:52 Tylenol 325 Mg PO 03/15/19 12:51 Q4H PRN PRN PAIN AND/OR FEVER Al Hydrox/Mg Hydrox/Simethicone 30 ml 02/13/19 12:52 Maalox Es 30 Ml Unit Dose PO 03/15/19 12:51 Q4H PRN PRN INDIGESTION Aripiprazole 30 mg 02/13/19 22:00 02/14/19 22:09 Abilify 10 Mg PO 03/15/19 21:59 30 mg HS ELOISA Administration Benztropine Mesylate 1 mg 02/13/19 22:00 02/15/19 08:14 Cogentin 0.5 Mg PO 03/15/19 21:59 1 mg BID ELOISA Administration Buspirone HCl 10 mg 02/13/19 20:00 02/15/19 07:50 Buspar 5 Mg PO 03/15/19 19:59 10 mg BID ELOISA Administration Divalproex Sodium 1,500 mg 02/13/19 22:00 02/14/19 22:[address] 250 Mg Tab PO 03/15/19 21:59 1,500 mg HS ELOISA Administration Famotidine 20 mg 02/13/19 22:00 02/15/19 07:52 Pepcid 20 Mg Vial IV 03/15/19 21:59 20 mg Q12HT ELOISA Administration Folic Acid 1 mg 02/14/19 10:00 02/15/19 07:49 Folate 1 Mg PO 03/16/19 09:59 1 mg DAILY ELOISA Administration Sodium Chloride 500 mls @ 20 mls/hr 02/13/19 12:52 Sodium Chloride 0.9% 500 Ml IV 03/15/19 12:51 .Q24H ELOISA Levothyroxine Sodium 50 mcg 02/14/19 10:00 02/15/19 07:52 Synthroid 50 Mcg PO 03/16/19 09:59 50 mcg QAM ELOISA Administration Magnesium Hydroxide 30 - 60 ml 02/13/19 12:52 Milk Of Magnesia 30 Ml PO 03/15/19 12:51 QDP PRN CONSTIPATION Metoprolol Tartrate 25 mg 02/13/19 22:00 02/15/19 07:49 Lopressor 25mg Tab PO 03/15/19 21:59 25 mg BID ELOISA Administration Mirtazapine 30 mg 02/13/19 22:00 02/14/19 22:10 Remeron 30 Mg PO 03/15/19 21:59 30 mg HS ELOISA Administration Morphine Sulfate 2 mg 02/13/19 12:52 02/15/19 11:56 Morphine Sulfate 2 Mg Inj IV 02/18/19 12:51 2 mg Q4H PRN PRN Administration PAIN Nitroglycerin 0.4 mg 02/13/19 20:52 02/13/19 21:00 Nitrostat 0.4 Mg Tablet SL 03/15/19 20:51 0.4 mg Q5MIN PRN MR X 3 PRN Administration CHEST PAIN Non-Formulary Medication 0 mg 02/14/19 22:00 02/14/19 22:09 Prazosin Hcl [Minipress] PO 03/16/19 21:59 5 mg HS ELOISA Administration Ondansetron HCl 4 mg 02/13/19 12:52 Zofran 4 Mg/2 Ml Vial IV 03/15/19 12:51 Q4H PRN PRN NAUSEA/VOMITING Rivaroxaban 20 mg 02/14/19 10:00 02/15/19 07:52 Xarelto 10 Mg Tablet PO 03/16/19 09:59 20 mg QAM ELOISA Administration Senna/Docusate Sodium 2 udtab 02/13/19 12:52 Senokot-S Tablet PO 03/15/19 12:51 BID PRN PRN CONSTIPATION Simvastatin 20 mg 02/13/19 22:00 02/14/19 22:11 Zocor 20mg PO 03/15/19 21:59 20 mg HS ELOISA Administration Thiamine HCl 100 mg 02/14/19 10:00 02/15/19 07:52 Vitamin B-1 100 Mg PO 03/16/19 09:59 100 mg DAILY ELOISA Administration Trazodone HCl 150 mg 02/13/19 22:00 02/14/19 22:10 Desyrel 150 Mg PO 03/15/19 21:59 150 mg HS ELOISA Administration Venlafaxine HCl 150 mg 02/14/19 10:00 02/15/19 07:52 Effexor Xr 75 Mg PO 03/16/19 09:59 150 mg QAM ELOISA Administration Discontinued Medications Generic Name Dose Route Start Last Admin Trade Name Freq PRN Reason Stop Dose Admin Aspirin 81 mg 02/13/19 11:34 02/13/19 11:36 Baby Aspirin 81 Mg Chew PO 02/13/19 11:35 81 mg STAT ONE Administration Aspirin Confirm 02/13/19 11:35 Baby Aspirin 81 Mg Chew Administered 02/13/19 11:36 Dose 81 mg .ROUTE .STK-MED ONE Diltiazem HCl 10 mg 02/13/19 11:08 02/13/19 11:24 Cardizem Iv 50 Mg/10 Ml IV 02/13/19 11:09 10 mg STAT ONE Administration Diltiazem HCl Confirm 02/13/19 11:18 Cardizem Iv 50 Mg/10 Ml Administered 02/13/19 11:19 Dose 50 mg IV .STK-MED ONE Sodium Chloride 1,000 mls @ 100 mls/hr 02/13/19 11:00 02/13/19 11:23 Sodium Chloride 0.9% 1000 Ml IV 03/15/19 10:59 100 mls/hr .Q10H ELOISA Administration Sodium Chloride Confirm 02/13/19 11:18 Sodium Chloride 0.9% 1000 Ml Administered 02/13/19 11:19 Dose 1,000 mls @ ud .ROUTE .STK-MED ONE Diltiazem HCl 100 mls @ 5 mls/hr 02/13/19 14:17 02/14/19 04:30 Cardizem Drip 100 Mg/100 Ml D5w IV 03/15/19 14:16 0 mg/hr .Q20H PRN 0 mls/hr HEART RATE/ A-FIB Titration Protocol 5 MG/HR Metoprolol Succinate 25 mg 02/13/19 22:00 02/14/19 10:56 Toprol-Xl 25mg Tablets PO 03/15/19 21:59 Not Given BID ELOISA Metoprolol Tartrate 5 mg 02/13/19 10:56 02/13/19 11:23 Lopressor 5 Mg/5 Ml Injection IV 02/13/19 10:57 Not Given STAT ONE Metoprolol Tartrate Confirm 02/13/19 11:17 Lopressor 5 Mg/5 Ml Injection Administered 02/13/19 11:18 Dose 5 mg IV .STK-MED ONE Morphine Sulfate 4 mg 02/13/19 10:56 02/13/19 11:24 Morphine Sulfate 4 Mg Inj IV 02/13/19 10:57 4 mg STAT ONE Administration Morphine Sulfate Confirm 02/13/19 11:18 Morphine Sulfate 4 Mg Inj Administered 02/13/19 11:19 Dose 4 mg .ROUTE .STK-MED ONE Morphine Sulfate 2 mg 02/13/19 11:55 02/13/19 12:00 Morphine Sulfate 2 Mg Inj IV 02/13/19 11:56 2 mg STAT ONE Administration Morphine Sulfate Confirm 02/13/19 11:58 Morphine Sulfate 2 Mg Inj Administered 02/13/19 11:59 Dose 2 mg .ROUTE .STK-MED ONE Ondansetron HCl 4 mg 02/13/19 11:15 02/13/19 11:34 Zofran 4 Mg/2 Ml Vial IV 02/13/19 11:16 Not Given STAT ONE Ondansetron HCl Confirm 02/13/19 11:17 Zofran 4 Mg/2 Ml Vial Administered 02/13/19 11:18 Dose 4 mg .ROUTE .STK-MED ONE Intake & Output (Last 24 hours) 02/13/19 02/14/19 02/15/19 02/16/19 11:59 11:59 11:59 11:59 Intake Total 1218 1767 Output Total 1700 1050 Balance -482 717 Weight 120.202 kg 118.9 kg 120.8 kg Orders (Last 24 hours) Category Date Time Status Discharge Routine Discharge 02/15/19 Ordered Discharge/Telephone Order Routine Discharge 02/15/19 Active ECHO W/2D AND DOPPLER [US] Routine Exams 02/15/19 08:00 Taken Prazosin HCl [Minipress] Med 02/14/19 22:00 Active 0 mg PO HS EKG ONCE RT 02/15/19 05:00 Completed EKG ONCE RT 02/16/19 05:00 Active RT Miscellaneous Order ROUTINE RT 02/15/19 09:21 Active Patient Care Notes (Last 24 hours) 02/15/19 11:53 Nursing Note by Marina Lara Pt tolerating room air well. See respiratory note. Initialized on 02/15/19 11:53 - END OF NOTE 02/15/19 09:48 Case Management Note by Jeana Browning PRIMARY RN NOTIFIED OF ORDER TO WEAN OXYGEN PRIOR TO DC PATIENT DOES NOT WEAR OXYGEN AT HOME Initialized on 02/15/19 09:48 - END OF NOTE 02/15/19 09:34 Case Management Note by Jeana Browning PATIENT HAS ORDERS TO DC HOME TODAY. HE DENIES ANY NEEDS AT HOME BESIDES HE NEEDS INFORMATION ON TRANSPORTATION SERVICES AVAILABLE. HE WAS GIVEN A HANDOUT WITH TRANSP[employer]ATION [employer] AND ALSO NOTIFIED THAT SOME INSURANCES WILL ALSO PAY FOR TRANSPORTATION AND HE COULD CALL HIS TO CHECK TO SEE IF THAT IS AN OPTION. HE VERIFIED UNDERSTANDING. Initialized on 02/15/19 09:34 - END OF NOTE - Vitals & Intake/Output Vital Signs: Vital Signs Temperature 97.6 F 02/15/19 09:00 Pulse Rate 105 H 02/15/19 09:00 Respiratory Rate 24 02/15/19 09:00 Blood Pressure 135/85 02/15/19 09:00 O2 Sat by Pulse Oximetry 91 L 02/15/19 11:13 Oxygen-Last Documented O2 Percentage 2 Liters = 28% Intake & Output: Intake & Output 02/13/19 02/14/19 02/15/19 02/16/19 11:59 11:59 11:59 11:59 Intake Total 1218 1767 Output Total 1700 1050 Balance -482 717 Weight 120.202 kg 118.9 kg 120.8 kg - Lab Result Diagrams: 02/13/19 11:15 02/13/19 11:15 - Radiology Exams Ordered Rad Exams-Entire Visit: Radiology Procedures Category Date Time Status ECHO W/2D AND DOPPLER [US] Routine Exams 02/15/19 08:00 Taken - Procedures and Test Procedures and Tests throughout Hospitalization: Therapy Orders & Screens 02/13/19 19:00 EKG ONCE Comment: Diagnosis: chest pain r/o OR 02/13/19 23:09 Oxygen Nasal Cannula 2 lpm Comment: Diagnosis: chest pain for 1 week 02/14/19 06:00 EKG ROUTINE Comment: Diagnosis: chest pain for 1 week 02/15/19 05:00 EKG ONCE Comment: Diagnosis: chest pain r/o OR 02/15/19 09:21 RT Miscellaneous Order ROUTINE Comment: HE DOES NOT WEAR OXYGEN AT HOME Physician Instructions: WEAN PATIENT FROM OXYGEN Reason For Exam: Diagnosis: chest pain for 1 week 02/16/19 05:00 EKG ONCE Comment: Diagnosis: chest pain r/o OR Discharge Exam General Appearance: no apparent distress, alert Neurologic Exam: alert, oriented x 3, cooperative, normal mood/affect, nml cerebellar function, sensation nml, No motor deficits Eye Exam: PERRL, EOMI, eyes nml inspection Ears, Nose, Throat Exam: normal ENT inspection, pharynx normal, moist mucous membranes Neck Exam: normal inspection, non-tender, supple, full range of motion Respiratory Exam: normal breath sounds, lungs clear, No respiratory distress Cardiovascular Exam: regular rate/rhythm, normal heart sounds Gastrointestinal/Abdomen Exam: soft, No tenderness, No mass Male Genitalia Exam: deferred Rectal Exam: deferred Back Exam: normal inspection, normal range of motion, No CVA tenderness, No vertebral tenderness Extremity Exam: normal inspection, normal range of motion Skin Exam: normal color, warm, dry Final Diagnosis/Problem List - Final Discharge Diagnosis/Problem (1) Chest pain Current Visit: Yes Status: Resolved Code(s): R07.9 - CHEST PAIN, UNSPECIFIED (2) Atrial fibrillation and flutter Current Visit: Yes Status: Chronic Code(s): I48.91 - UNSPECIFIED ATRIAL FIBRILLATION; I48.92 - UNSPECIFIED ATRIAL FLUTTER - Discharge Discharge Date: 02/15/19 Disposition: Home, Self-Care Condition: Stable Prescriptions: Continue Metoprolol Succinate 25 mg Xl* [Toprol-Xl 25MG Tablets] 25 mg PO BID Mirtazapine 30 mg PO HS Thiamine HCl 100 mg [Vitamin B-1 100 mg] 100 mg PO DAILY Divalproex Sodium [Depakote] 1,500 mg PO HS Aripiprazole [Abilify] 30 mg PO HS Buspirone HCl 5 mg [Buspar 5 mg] 10 mg PO BID Folic Acid 1 mg PO DAILY Levothyroxine Sodium [Synthroid] 50 mcg PO QAM Simvastatin 20 mg PO HS Benztropine Mesylate 1 mg PO BID Venlafaxine HCl [Venlafaxine HCl ER] 150 mg PO QAM Trazodone HCl 150 mg [Desyrel 150 MG] 150 mg PO HS Rivaroxaban [Xarelto] 20 mg PO QAM Prazosin HCl [Minipress] 5 mg PO HS Instructions: Atrial Fibrillation (DC), Chest Pain That Is Not Caused by the Heart (DC) Additional Instructions: DR GILLIAM APPOINTMENT AT [facility]. Follow up with: LAZARO DAVIS MD [NON-STAFF PHY W/O PRIVILEGES] - 03/01/19 11:45 am HEAVEN GILLIAM MD [Emergency Provider] - 02/22/19 10:00 am
[2019-02-15 12:25] VITALS: BP 111/73; PULSE 80; O2SAT 94
--- NOTE | 2019-02-16 15:13 | ECHO ---
DATE OF PROCEDURE: 02/15/2019 CLINICAL INFORMATION: Chest pain with history of pacemaker. The M-mode 2D, and Doppler echocardiogram including color flow Doppler shows the left ventricle is normal in size at 5.2 cm. There is no thrombus present. The echocardiogram is technically difficult due to body habitus. The septal wall thickness is increased at 1.2 cm. The left ventricular posterior wall thickness is increased at 1.4 cm. There is normal contractility of the left ventricle with an ejection fraction calculated to be 68%. The right ventricle has a ventricular electrode. The contractility is normal. The left atrium is dilated at 4.4 cm. The interatrial septum is intact. The right atrium is normal. There is an electrode in the right atrium. The aortic valve opens well. There is no aortic regurgitation. There is mild tricuspid regurgitation. The right ventricular systolic pressure is normal at 21 mm of Mercury. The pulmonic valve is not well visualized. The aortic root is normal at 3.4 cm. There is a small posterior pericardial effusion present. IMPRESSION: 1) NORMAL CONTRACTILITY OF THE LEFT VENTRICLE. 2) MILD CONCENTRIC LEFT VENTRICULAR HYPERTROPHY. 3) MILD MITRAL REGURGITATION. 4) MILD TRICUSPID REGURGITATION. 5) NORMAL RIGHT VENTRICULAR SYSTOLIC PRESSURE. 6) RIGHT VENTRICULAR AND RIGHT ATRIAL ELECTRODE. 7) SMALL POSTERIOR PERICARDIAL EFFUSION. The echocardiogram is technically difficult.
== END 2019-02-15 12:10 | disposition home or self-care (01) ==
LOC: ED 10:41 → MED SURG 12:43 → ICU 14:33 → MED SURG 02-14 09:30
PROVIDERS: ADMIT General Practice; ATTEND General Practice
DX: R07.9 Chest pain, unspecified (principal); I48.91 Unspecified atrial fibrillation; R11.2 Nausea with vomiting, unspecified; I10 Essential (primary) hypertension; I25.10 Atherosclerotic heart disease of native coronary artery without angina pectoris; Z79.899 Other long term (current) drug therapy; Z95.0 Presence of cardiac pacemaker
CPT/HCPCS: 36415; 80053; 80061; 83721; 83880; 84484; 85025; 85379; 93005; 93041; 93268; 93306; 94760; 96374; 96375; 96376; 99291; G0378; 36000; 71045; 90686; 99285; J2270; J2405; A9270-GY

== ENCOUNTER 2019-03-14 13:51 | Inpatient (IN) | payer OTHER ==
[2019-03-14] MEDS ORDERED: MORPHINE SULFATE 4 MG INJ IV ONE ×2 (14:05→16:26)
[2019-03-14] MEDS ORDERED: MORPHINE SULFATE 4 MG INJ ONE ×2 (14:09→16:27)
[2019-03-14] MEDS: Sodium Chloride 0.9% 1000 ML 1,000 ML IV SCH ×2 (14:13→18:53)
[2019-03-14 14:27] LABS: Absolute Neutrophil Ct (ANC) 4.91 (1.4-6.9); BASOPHIL % 0.4 % (0.0-0.4); Basophil (Absolute #) 0.03 (0-0.4); Eosinophil % 0.7 % (0.00-5.0); Eosinophil (Absolute #) 0.05 (0-0.5); Hematocrit 38.4 % (42-50); Hemoglobin 12.7 gm/dl (12.5-18.0); Lymphocyte (Absolute #) 1.63 (1.0-4.6); Lymphocytes % 22.3 % (24.0-44.0); Mean Corpuscular Hemoglobin 30.1 pg (26-32); Mean Corpuscular Hgb Concent. 33.1 g/dl (32-36); Mean Platelet Volume 10.2 fl (7.5-11.0); Monocyte (Absolute #) 0.69 (0.0-1.3); Monocytes % 9.4 % (0.0-12.0); Neutrophil % 67.2 % (36.0-66.0); Platelet Count 201 K/mm3 (150-450); Red Blood Count 4.22 M/mm3 (4.1-5.6); Red Cell Distribution Width 13.3 % (11.5-14.0); White Blood Count 7.3 K/mm3 (4.0-10.5)
[2019-03-14 14:28] LABS: INR 1.13 (0.8-3.0); PROTIME 12.8 SECONDS (8.83-12.87)
[2019-03-14 14:31] LABS: PTT 27.7 SECONDS (24.1-36.1)
[2019-03-14 14:40] LABS: ALKALINE PHOSPHATASE 38 U/L (38-126); ANION GAP 12.8 MEQ/L (5-15); BLOOD UREA NITROGEN 10 mg/dL (9-20); CHLORIDE 106 mmol/L (98-107); Calcium 8.8 mg/dL (8.4-10.2); Carbon Dioxide 26 mmol/L (22-30); Creatinine 1 0.81 mg/dL (0.66-1.25); Glucose 114 mg/dL (74-106); NT PRO BNP 1990 pg/mL (0-900); SGOT/AST 17 U/L (17-59); SGPT/ALT 12 U/L (0-50); SODIUM 141 mmol/L (137-145); Total Protein 6.8 g/dL (6.3-8.2)
[2019-03-14] MEDS ORDERED: Lasix 40 MG/4 ML IV ONE (14:54)
[2019-03-14] MEDS ORDERED: Lasix 40 MG/4 ML ONE (14:56)
[2019-03-14 15:13] LABS: INFLUENZA A NEGATIVE (NEGATIVE); INFLUENZA B NEGATIVE (NEGATIVE); RESPIRATORY SYNCTIAL VIRUS NEGATIVE (Negative)
[2019-03-14 15:35] LABS: Appearance CLEAR (CLEAR); Bilirubin NEGATIVE (NEGATIVE); Blood NEGATIVE Ery/ul (0-5); Glucose NEGATIVE (NEGATIVE); Ketones NEGATIVE (NEGATIVE); Leukocyte Esterase NEGATIVE (NEGATIVE); Mucus SLIGHT /HPF (NEGATIVE); Nitrite NEGATIVE (NEGATIVE); Protein,Urine Dip NEGATIVE (Negative); Specific Gravity 1.012 (1.005-1.025); Urobilinogen NEGATIVE mg/dL (0-1)
[2019-03-14 15:42] LABS: Amphetamine,Urine NEGATIVE (NEGATIVE); Barbiturate,Urine NEGATIVE (NEGATIVE); Benzodiazepine,Urine NEGATIVE (NEGATIVE); Cocaine,Urine NEGATIVE (NEGATIVE); Methadone,Urine NEGATIVE (NEGATIVE); Opiate,Urine POSITIVE (NEGATIVE); PCP,Urine NEGATIVE (NEGATIVE); THC,Urine NEGATIVE (NEGATIVE)
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
[2019-03-14] MEDS: Lasix 40 MG/4 ML IV SCH (17:29)
--- NOTE | 2019-03-14 18:02 | XRAY ---
Indication: Short of breath. Comparison: February 13, 2019. Portable chest remains clear again with cardiomegaly and left-sided pacemaker. No new/acute findings.
[2019-03-14] MEDS: Abilify 10 MG PO SCH (22:33)
[2019-03-14] MEDS: Desyrel 150 MG PO SCH (22:34)
[2019-03-14] MEDS: Toprol-Xl 25MG Tablets PO SCH (22:34)
[2019-03-14] MEDS: ZOCOR 20MG PO SCH (22:35)
[2019-03-14] MEDS: COGENTIN 0.5 MG PO SCH (22:35)
[2019-03-14] MEDS: REMERON 30 MG PO SCH (22:35)
[2019-03-14] MEDS: BUSPAR 5 MG PO SCH (22:35)
[2019-03-14] MEDS: MORPHINE SULFATE 4 MG INJ IV PRN (22:36)
[2019-03-15] MEDS: Lasix 40 MG/4 ML IV SCH ×2 (03:55→16:59)
[2019-03-15] MEDS: MORPHINE SULFATE 4 MG INJ IV PRN ×5 (03:55→23:59)
[2019-03-15 04:10] LABS: Hematocrit 39.8 % (42-50); Hemoglobin 13.3 gm/dl (12.5-18.0); Mean Cell Volume 91.3 fl (78-100); Mean Corpuscular Hemoglobin 30.5 pg (26-32); Mean Corpuscular Hgb Concent. 33.4 g/dl (32-36); Mean Platelet Volume 10.7 fl (7.5-11.0); Platelet Count 209 K/mm3 (150-450); Red Blood Count 4.36 M/mm3 (4.1-5.6); Red Cell Distribution Width 13.4 % (11.5-14.0); White Blood Count 7.5 K/mm3 (4.0-10.5)
[2019-03-15 04:24] LABS: ANION GAP 12.4 MEQ/L (5-15); BLOOD UREA NITROGEN 13 mg/dL (9-20); CHLORIDE 102 mmol/L (98-107); Calcium 8.6 mg/dL (8.4-10.2); Carbon Dioxide 29 mmol/L (22-30); Creatinine 1 0.83 mg/dL (0.66-1.25); Glucose 113 mg/dL (74-106); NT PRO BNP 1920 pg/mL (0-900); Potassium 3.6 mmol/L (3.5-5.1); SODIUM 139 mmol/L (137-145)
[2019-03-15] MEDS: BUSPAR 5 MG PO SCH ×2 (09:02→21:56)
[2019-03-15] MEDS: Effexor XR 75 MG PO SCH (09:02)
[2019-03-15] MEDS: COGENTIN 0.5 MG PO SCH ×2 (09:03→22:00)
[2019-03-15] MEDS: Toprol-Xl 25MG Tablets PO SCH ×2 (09:03→21:59)
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
[2019-03-15] MEDS: XARELTO 10 MG TABLET PO SCH (11:41)
[2019-03-15] MEDS: VITAMIN B-1 100 MG PO SCH (11:41)
[2019-03-15] MEDS: SYNTHROID 50 MCG PO SCH (11:41)
[2019-03-15] MEDS: FOLATE 1 MG PO SCH (11:41)
[2019-03-15] MEDS: Sodium Chloride 0.9% 1000 ML 1,000 ML IV SCH (15:26)
[2019-03-15] MEDS: Abilify 10 MG PO SCH (21:56)
[2019-03-15] MEDS: Desyrel 150 MG PO SCH (21:57)
[2019-03-15] MEDS: REMERON 30 MG PO SCH (21:58)
[2019-03-15] MEDS: ZOCOR 20MG PO SCH (21:59)
[2019-03-15] MEDS: PRAZOSIN PO SCH (22:01)
[2019-03-16] MEDS: Lasix 40 MG/4 ML IV SCH ×2 (04:42→17:05)
--- NOTE | 2019-03-16 08:50 | PCM.NOTE ---
Date and Time: 03/16/19 0847 Subjective Assessment: Pt is still c/o substernal chest pain. Carmen po. - Review of Systems Constitutional: No Fever Cardiac: Chest Pain Objective Exam General Appearance: mild distress, alert Neurologic Exam: oriented x 3, cooperative Skin Exam: normal color, warm, dry, No rash Respiratory Exam: normal breath sounds, lungs clear, No crackles/rales, No rhonchi, No wheezing Cardiovascular Exam: regular rate/rhythm, normal heart sounds, No murmur Gastrointestinal/Abdomen Exam: soft, normal bowel sounds, No tenderness, No distention, No mass, No guarding, No rebound Extremity Exam: normal inspection, No pedal edema, No swelling Back Exam: normal inspection, No rash OBJECTIVE DATA Vital Signs: Vital Signs - 24 hr Temp Pulse Resp BP Pulse Ox 03/16/19 08:34 95 03/16/19 07:36 98.3 F 57 L 18 110/78 96 03/16/19 04:00 97.5 F 85 18 101/70 90 L 03/16/19 00:00 97.7 F 80 16 111/76 92 L 03/15/19 21:59 94 L 03/15/19 20:00 98 F 83 22 108/66 93 L 03/15/19 16:41 98.1 F 70 20 118/68 96 03/15/19 12:23 98.2 F 81 20 107/77 99 Pain Assessment - Last Documented Pain Intensity 10 Pain Scale Used 0-10 Pain Scale Intake and Output: Intake & Output 03/13/19 03/14/19 03/15/19 03/16/19 11:59 11:59 11:59 11:59 Intake Total 2002 3159 Output Total 5949 1750 Balance -3947 1410 Weight 118.8 kg 119.4 kg Lab Results: Lab Results-Last 24 Hours 03/15/19 Range/Units 04:00 Creatine Kinase 87 (55-170) U/L Radiology Exams: Radiology Procedures Category Date Time Status CHEST 1 VIEW (PORTABLE) Stat Exams 03/14/19 14:23 Completed CHEST WITH CONTRAST [CT] Urgent Exams 03/16/19 08:46 Ordered ECHO W/2D AND DOPPLER [US] Routine Exams 03/16/19 Ordered Assessment/Plan (1) Chest pain Current Visit: No Status: Resolved Qualifiers: Chest pain type: precordial pain Qualified Code(s): R07.2 - Precordial pain Assessment & Plan: with elevated d-dimer; pt on Eliquis and Wells criteria was initially low, but I 'm not sure there is another reason for this pain so will go ahead with CT chest with contrast this morning to r/o PE. Code(s): R07.9 - CHEST PAIN, UNSPECIFIED (2) CHF (congestive heart failure) Current Visit: Yes Status: Acute Qualifiers: Heart failure chronicity: acute on chronic Assessment & Plan: ON IV lasix. Code(s): I50.9 - HEART FAILURE, UNSPECIFIED (3) Atrial fibrillation and flutter Current Visit: No Status: Chronic Code(s): I48.91 - UNSPECIFIED ATRIAL FIBRILLATION; I48.92 - UNSPECIFIED ATRIAL FLUTTER (4) Myalgia and myositis Current Visit: Yes Status: Acute Assessment & Plan: ck was nl. will try steroid. could be related to fibromyalgia. Code(s): [id number] - (5) Cough Current Visit: Yes Status: Acute Assessment & Plan: cxr was non acute Code(s): R05 - COUGH
[2019-03-16] MEDS: MORPHINE SULFATE 4 MG INJ IV PRN ×3 (08:59→20:04)
[2019-03-16] MEDS: VITAMIN B-1 100 MG PO SCH (09:11)
[2019-03-16] MEDS: BUSPAR 5 MG PO SCH ×2 (09:12→21:31)
[2019-03-16] MEDS: XARELTO 10 MG TABLET PO SCH (09:12)
[2019-03-16] MEDS: SYNTHROID 50 MCG PO SCH (09:12)
[2019-03-16] MEDS: Effexor XR 75 MG PO SCH (09:12)
[2019-03-16] MEDS: FOLATE 1 MG PO SCH (09:12)
[2019-03-16] MEDS: Toprol-Xl 25MG Tablets PO SCH ×2 (09:12→21:33)
[2019-03-16] MEDS: COGENTIN 0.5 MG PO SCH ×2 (09:13→21:31)
[2019-03-16] MEDS ORDERED: DELTASONE 20 MG PO SCH (10:00)
--- NOTE | 2019-03-16 10:37 | XRAY ---
Indication: Chest pain, short of breath, and weakness. Elevated d-dimer. Multiple contiguous axial images obtained through the chest using 80 cc Isovue 370 contrast and PE protocol. Comparison: CT chest without December 20, 2018. There is good opacification of the pulmonary arteries to include the lobar and segmental branches. No filling defect/pulmonary embolus. Heart is now enlarged with new small pericardial effusion. Stable left-sided dual-lead pacemaker. Aorta is normal in course and caliber. No pathologic mediastinal/hilar lymphadenopathy. Lungs again demonstrates mild bilateral dependent atelectasis. No pulmonary mass/nodule, infiltrate, or effusion. Bony thorax intact. Limited upper abdomen again demonstrates mild fatty liver and cholecystectomy. Impression: 1. Negative pulmonary embolus. 2. New cardiomegaly with small pericardial effusion. 3. Stable mild fatty liver. 4. Remaining CT chest with contrast exam is negative.
--- NOTE | 2019-03-16 15:21 | ECHO ---
DATE OF PROCEDURE: 03/16/2019 CLINICAL INFORMATION: Chest pain. The M-mode 2D, and Doppler echocardiogram including color flow Doppler shows the left ventricle is normal in size at 5.6 cm. There is no thrombus present. The septal wall thickness is increased at 1.4 cm. The left ventricular posterior wall thickness is increased at 1.2 cm. The left ventricular systolic function is at the lower limit of normal with an ejection fraction calculated at 50%. The right ventricle is grossly normal. The left atrium is mildly dilated at 4.2 cm. The interatrial septum is not well visualized. The right atrium appears to be mildly dilated. The aortic valve opens well. There is no aortic regurgitation. The mitral valve appears to be normal. There is mild tricuspid regurgitation. The right ventricular systolic pressure is normal at 29 mm of [place]. The pulmonic valve is not well visualized. The aortic root is normal at 3.2 cm. There is no pericardial effusion present. There is a pacing electrode in the right ventricle and another pacing electrode in the right atrium. The underlying rhythm appears to be atrial fibrillation. IMPRESSION: 1) LOW NORMAL LEFT VENTRICULAR SYSTOLIC FUNCTION. 2) MILD CONCENTRIC LEFT VENTRICULAR HYPERTROPHY. 3) MILD LEFT ATRIAL DILATATION. 4) MILD TRICUSPID REGURGITATION. 5) NORMAL RIGHT VENTRICULAR SYSTOLIC PRESSURE.
[2019-03-16] MEDS: Sodium Chloride 0.9% 1000 ML 1,000 ML IV SCH (16:05)
[2019-03-16] MEDS ORDERED: Toprol-Xl 25MG Tablets PO ONE (17:37)
[2019-03-16] MEDS: Abilify 10 MG PO SCH (21:30)
[2019-03-16] MEDS: Desyrel 150 MG PO SCH (21:31)
[2019-03-16] MEDS: PRAZOSIN PO SCH (21:32)
[2019-03-16] MEDS: ZOCOR 20MG PO SCH (21:33)
[2019-03-16] MEDS: REMERON 30 MG PO SCH (21:33)
[2019-03-17] MEDS: Lasix 40 MG/4 ML IV SCH ×2 (04:09→16:21)
[2019-03-17] MEDS: MORPHINE SULFATE 4 MG INJ IV PRN ×3 (04:09→16:21)
--- NOTE | 2019-03-17 08:39 | PCM.NOTE ---
Date and Time: 03/17/19831 Subjective Assessment: Pt is still c/o 10/10 chest pain. Says nitro doesn't help. Dose of steroid given yesterday doesn't help. Pt is tolerating po well. He says that last night he was seeing people. He is schizophrenic, so this is not that unusual for him, especially when he's off his meds. Has not been on his meds, he says his insurance wouldn't pay for them. Per RN and discharge planning, he gets his Rx from [facility] and he has medicaid so should be able to get his meds paid for. Has hx inpatient admissions for psych issues. Yesterday pt had HR into the 120s at times, and down to 70s at times. Atrial fib/flutter on monitor. Was given an extra dose of Toprol XL 25 mg. Apparently he has seen 5 different cardiologists at [place] and last month saw a leather cartridge belt maker who came to [place] from [place] (records are requested). He goes to whatever doctor is closest/it applications analyst at any given time when he has an issue. Chest pain is apparently a common reason for him to be admitted. Often when he runs out of meds he just stops taking them. When he has an appointment, he can get free transportation from medicaid but he admits he just doesn't call ahead of time to set that up. - Review of Systems Constitutional: No Fever Abdominal/Gastrointestinal: No Vomiting Objective Exam General Appearance: no apparent distress, alert Neurologic Exam: oriented x 3, cooperative, other (diminished affect as usual) Skin Exam: normal color, warm, dry, No rash Ears, Nose, Throat Exam: moist mucous membranes Neck Exam: normal inspection Respiratory Exam: normal breath sounds, lungs clear, No crackles/rales, No rhonchi, No wheezing Cardiovascular Exam: regular rate/rhythm, normal heart sounds, No murmur Gastrointestinal/Abdomen Exam: soft, No normal bowel sounds (hypoactive) Extremity Exam: No pedal edema, No swelling OBJECTIVE DATA Vital Signs: Vital Signs - 24 hr Temp Pulse Resp BP Pulse Ox 03/17/19 07:31 92 L 03/17/19 06:46 97.1 F 90 18 125/94 98 03/17/19 04:00 98.0 F 102 H 22 117/72 95 03/16/19 23:54 97.7 F 100 H 20 111/72 93 L 03/16/19 19:43 98 03/16/19 19:35 97.9 F 89 20 112/78 98 03/16/19 16:00 98.2 F 84 16 120/80 93 L 03/16/19 14:00 87 L 03/16/19 11:36 98.2 F 82 18 112/69 95 03/16/19 08:34 95 Pain Assessment - Last Documented Pain Intensity 9 Pain Scale Used 0-10 Pain Scale Intake and Output: Intake & Output 03/14/19 03/15/19 03/16/19 03/17/19 11:59 11:59 11:59 11:59 Intake Total 20020 2019 Output Total 5950 2850 1445 Balance -3947 310 575 Weight 118.8 kg 119.4 kg 117.4 kg Radiology Exams: Radiology Procedures Category Date Time Status CHEST WITH CONTRAST [CT] Urgent Exams 03/16/19 08:46 Completed ECHO W/2D AND DOPPLER [US] Routine Exams 03/16/19 10:53 Draft Multi-Disciplinary Progress Notes: Multi-Disciplinary Progress Notes 03/16/19 13:58 Respiratory Note by Sarahi Randle 03/16/19 1315 PT'S O2 SAT ON ROOM AIR WHILE AT REST WAS 87%. PT WAS THEN PLACED ON 2LPM NASAL CANNULA. O2 SAT INCREASED TO 95%. NURSE ANDREW NOTIFIED. SARAHI RANDLE PIPE LINE REPAIRER Initialized on 03/16/19 13:58 - END OF NOTE 03/16/19 11:59 Case Management Note by Jeana Browning NOTIFIED THAT PATIENT STATES HE HAS HAD MORE SOB AT HOME AND IS INTERESTED TO SEE IF HE QUALIFIED FOR HOME OXYGEN. NEW ORDER ENTERED. Initialized on 03/16/19 11:59 - END OF NOTE Assessment/Plan (1) Chest pain Current Visit: No Status: Resolved Qualifiers: Chest pain type: precordial pain Qualified Code(s): R07.2 - Precordial pain Assessment & Plan: Persistent. Has ruled out for ID. Ruled out PE. Small pericardial effusion noted on CT but not on echo. Pain not relieved by nitro. Tried steroid, as he has fibromyalgia, with no relief. Consulting cardiology today. I suspect his psych diagnoses may be contributing. Code(s): R07.9 - CHEST PAIN, UNSPECIFIED (2) CHF (congestive heart failure) Current Visit: Yes Status: Chronic Qualifiers: Heart failure chronicity: acute on chronic Assessment & Plan: rechecking labs, has been getting 40mg lasix IV BID since admission. Code(s): I50.9 - HEART FAILURE, UNSPECIFIED (3) Atrial fibrillation and flutter Current Visit: No Status: Chronic Assessment & Plan: HR improved with 1 extra dose toprol 25mg yesterday - will increase to 50mg po BID. Code(s): I48.91 - UNSPECIFIED ATRIAL FIBRILLATION; I48.92 - UNSPECIFIED ATRIAL FLUTTER (4) Myalgia and myositis Current Visit: Yes Status: Acute Code(s): [id number] - (5) Cough Current Visit: Yes Status: Acute Code(s): R05 - COUGH
[2019-03-17 09:09] LABS: Hematocrit 43.3 % (42-50); Hemoglobin 14.6 gm/dl (12.5-18.0); Mean Cell Volume 90.4 fl (78-100); Mean Corpuscular Hemoglobin 30.5 pg (26-32); Mean Corpuscular Hgb Concent. 33.7 g/dl (32-36); Platelet Count 251 K/mm3 (150-450); Red Blood Count 4.79 M/mm3 (4.1-5.6); Red Cell Distribution Width 13.4 % (11.5-14.0); White Blood Count 8.8 K/mm3 (4.0-10.5)
[2019-03-17 09:31] LABS: ANION GAP 14.4 MEQ/L (5-15); BLOOD UREA NITROGEN 19 mg/dL (9-20); CHLORIDE 95 mmol/L (98-107); Calcium 8.4 mg/dL (8.4-10.2); Carbon Dioxide 37 mmol/L (22-30); Creatinine 1 0.88 mg/dL (0.66-1.25); Glucose 79 mg/dL (74-106); NT PRO BNP 648 pg/mL (0-900); Potassium 3.3 mmol/L (3.5-5.1); SODIUM 143 mmol/L (137-145)
[2019-03-17] MEDS: XARELTO 10 MG TABLET PO SCH (09:32)
[2019-03-17] MEDS: Effexor XR 75 MG PO SCH (09:32)
[2019-03-17] MEDS: SYNTHROID 50 MCG PO SCH (09:32)
[2019-03-17] MEDS: BUSPAR 5 MG PO SCH (09:32)
[2019-03-17] MEDS: VITAMIN B-1 100 MG PO SCH (09:32)
[2019-03-17] MEDS: FOLATE 1 MG PO SCH (09:32)
[2019-03-17] MEDS: COGENTIN 0.5 MG PO SCH (09:33)
[2019-03-17] MEDS ORDERED: Toprol Xl 50 MG PO SCH (10:00)
[2019-03-17] MEDS: Sodium Chloride 0.9% 1000 ML 1,000 ML IV SCH (11:37)
[2019-03-17 16:58] VITALS: BP 105/74; PULSE 72; O2SAT 92
== END 2019-03-17 20:25 | disposition short-term general hospital (02) | DRG 292 ==
LOC: ED 13:51 → MED SURG 17:03 → OBSVTOIN 03-16 08:47
PROVIDERS: ADMIT Family Medicine; ATTEND Family Medicine
DX: I11.0 Hypertensive heart disease with heart failure (principal); I48.92 Unspecified atrial flutter; J96.11 Chronic respiratory failure with hypoxia; R45.851 Suicidal ideations; I50.9 Heart failure, unspecified; I48.91 Unspecified atrial fibrillation; R07.9 Chest pain, unspecified; I49.8 Other specified cardiac arrhythmias; Z95.0 Presence of cardiac pacemaker; E66.9 Obesity, unspecified; F20.9 Schizophrenia, unspecified; E03.9 Hypothyroidism, unspecified; M79.7 Fibromyalgia; I25.10 Atherosclerotic heart disease of native coronary artery without angina pectoris; R05 Cough; Z79.899 Other long term (current) drug therapy
CPT/HCPCS: 36000; 36415; 71045; 71260; 80048; 80053; 80307; 81001; 82550; 83880; 84484; 85025; 85027; 85379; 85610; 85730; 87631; 87651; 90791; 93005; 93268; 93306; 94760; 96374; 96375; 96376; 99285; 99291; J1940; J2270; Q3014; A9270-GY; G0378